=== PATIENT | female | born 1965 | race Hispanic/Latino ===

== ENCOUNTER 2023-11-10 00:33 | Emergency (ER) | payer BC ==
[~2023-11-10] VITALS: Ht 170.2 cm; Wt 73.0 kg
[2023-11-10] MEDS ORDERED: CLONIDINE HCL 0.2 MG TABLET PO ONE (01:00)
[2023-11-10 01:38] VITALS: BP 116/85; PULSE 62; RESP 17; O2SAT 99
== END 2023-11-10 01:56 | disposition home or self-care (01) ==
LOC: EDH 00:33
DX: I10 Essential (primary) hypertension (principal); E03.9 Hypothyroidism, unspecified; Z88.5 Allergy status to narcotic agent; Z88.8 Allergy status to other drugs, medicaments and biological substances